=== PATIENT | female | born 1990 | race Caucasian/White ===

== ENCOUNTER 2018-09-18 18:14 | Inpatient (IN) | payer OTHER ==
[~2018-09-18] VITALS: Ht 160 cm; Wt 112.9 kg
[2018-09-18] MEDS ORDERED: OXYTOCIN/0.9 % SODIUM CHLORIDE 1,000 ML IV SCH (19:23)
[2018-09-18] MEDS ORDERED: LR 1,000 ML IV SCH (19:23)
[2018-09-18] MEDS ORDERED: TERBUTALINE SULFATE 1 MG/ML VIAL SUBCUT ONE (19:30)
[2018-09-18] MEDS ORDERED: NALBUPHINE HCL 10 MG/ML AMP IVP PRN (19:30)
[2018-09-18] MEDS ORDERED: DINOPROSTONE 10 MG SUPP VG ONE (19:30)
[2018-09-18 19:32] VITALS: BP_SYST 138
[2018-09-18 19:48] LABS: BASOPHILS % (AUTO) 0.4 % (0.0-2.0); EOSINOPHILS # (AUTO) 0.1 K/uL (0.0-0.4); EOSINOPHILS % (AUTO) 0.7 % (0.0-4.0); HEMATOCRIT 33.4 % (36-48); HEMOGLOBIN 11.1 g/dL (12.0-16.0); LYMPHOCYTES # (AUTO) 1.9 K/uL (1.0-5.5); LYMPHOCYTES % (AUTO) 18.6 % (20.5-51.5); MEAN CORPUSCULAR HEMOGLOBIN 29 pg (27-31); MEAN CORPUSCULAR HGB CONC 33 % (32-36); MEAN CORPUSCULAR VOLUME 86 fL (79.0-98.0); MONOCYTES # (AUTO) 0.7 K/uL (0.0-1.0); MONOCYTES % (AUTO) 6.5 % (1.7-9.3); NEUTROPHILS # (AUTO) 7.6 K/uL (1.8-7.7); NEUTROPHILS % (AUTO) 73.8 % (40.0-70.0); PLATELET COUNT (AUTO) 255 K/uL (130-430); RED BLOOD CELL COUNT(AUTO) 3.87 MIL/uL (4.2-6.2); RED CELL DISTRIBUTION WIDTH 15.6 % (9.0-15.0); WHITE BLOOD COUNT (AUTO) 10.3 K/uL (4.8-10.8)
[2018-09-18 19:49] LABS: BILIRUBIN,URINE NEGATIVE (NEGATIVE); BLOOD, URINE NEGATIVE (NEGATIVE); CLARITY/URINE CLEAR (CLEAR); COLOR,URINE YELLOW (YELLOW); GLUCOSE,URINE NEGATIVE (NEGATIVE); KETONES,URINE TRACE (NEGATIVE); LEUKOCYTE ESTERASE ,URINE TRACE (NEGATIVE); NITRITE, URINE NEGATIVE (NEGATIVE); PROTEIN URINE NEGATIVE (NEGATIVE); UROBILINOGEN,URINE 0.2 (0.2-1.0)
[2018-09-18 19:55] LABS: BACTERIA,URINE FEW /HPF (None Seen); RBC,URINE 0-3 /HPF (0-3)
[2018-09-18 20:14] LABS: CALCIUM 9.1 mg/dL (8.4-11.0); CREATININE 0.7 mg/dL (0.55-1.30); POTASSIUM 3.8 mmol/L (3.5-5.1); TOTAL BILIRUBIN 0.3 mg/dL (0.0-1.0)
[2018-09-18 20:15] LABS: ALBUMIN 2.4 g/dL (3.4-4.8)
[2018-09-19] MEDS ORDERED: DINOPROSTONE 10 MG SUPP VG ONE (10:39)
== END 2018-09-19 10:40 | disposition home or self-care (01) | DRG 833 ==
LOC: OBSVTOIN 18:16 → SPU 18:16
PROVIDERS: ADMIT Obstetrics & Gynecology; ATTEND Obstetrics & Gynecology
DX: O13.3 Gestational [pregnancy-induced] hypertension without significant proteinuria, third trimester (principal); Z3A.40 40 weeks gestation of pregnancy
CPT/HCPCS: 36415; 80053; 81000-TC; 85025; 85384-TC; 86592; 86870; 86886; 86900; 86901

== ENCOUNTER 2023-08-02 13:07 | Emergency (ER) | payer BC, OTHER ==
[~2023-08-02] VITALS: Ht 160 cm; Wt 95.3 kg
[2023-08-02 13:12] VITALS: BP_SYST 137; PULSE 84; RESP 15; TEMP 97.3; O2SAT 100
[2023-08-02] MEDS: RHO(D) IMMUNE GLOBULIN/MALTOSE 1500 UNITS/1.3 ML (WINHRO) INJ ONE (14:30)
[2023-08-02 14:36] LABS: CALCIUM 9.2 mg/dL (8.4-11.0); CREATININE 0.68 mg/dL (0.55-1.30)
[2023-08-02 14:37] LABS: BASOPHILS % (AUTO) 0.2 % (0.0-2.0); EOSINOPHILS # (AUTO) 0.2 K/uL (0.0-0.4); EOSINOPHILS % (AUTO) 1.8 % (0.0-4.0); HEMATOCRIT 37.2 % (36-48); HEMOGLOBIN 13.1 g/dL (12.0-16.0); MEAN CORPUSCULAR HEMOGLOBIN 31 pg (27-31); MEAN CORPUSCULAR HGB CONC 35 % (32-36); MEAN CORPUSCULAR VOLUME 87 fL (79.0-98.0); MONOCYTES # (AUTO) 0.5 K/uL (0.0-1.0); MONOCYTES % (AUTO) 5.9 % (1.7-9.3); NEUTROPHILS # (AUTO) 6.1 K/uL (1.8-7.7); NEUTROPHILS % (AUTO) 69.1 % (40.0-70.0); PLATELET COUNT (AUTO) 275 K/uL (130-430); RED BLOOD CELL COUNT(AUTO) 4.29 MIL/uL (4.2-6.2); RED CELL DISTRIBUTION WIDTH 13.1 % (9.0-15.0); WHITE BLOOD COUNT (AUTO) 8.9 K/uL (4.8-10.8)
[2023-08-02 16:20] VITALS: BP_SYST 131; PULSE 81; RESP 16; TEMP 97.8; O2SAT 98
== END 2023-08-02 16:17 | disposition home or self-care (01) ==
LOC: SED 13:07
DX: O20.0 Threatened abortion (principal); Z3A.01 Less than 8 weeks gestation of pregnancy; Z79.899 Other long term (current) drug therapy
CPT/HCPCS: 99285; 76856; 80048; 84702; 85025; 86886; 86900; 86901; 36415; 81025; 96372; J2792; J2790

== ENCOUNTER 2023-08-06 17:55 | Emergency (ER) | payer BC ==
[~2023-08-06] VITALS: Ht 160 cm; Wt 97.5 kg
[2023-08-06 18:10] VITALS: BP_SYST 113; PULSE 89; RESP 15; TEMP 97.6; O2SAT 99
[2023-08-06 18:53] LABS: EOSINOPHILS % (AUTO) 0.2 % (0.0-4.0); HEMATOCRIT 37.5 % (36-48); LYMPHOCYTES % (AUTO) 6.9 % (20.5-51.5); MEAN CORPUSCULAR HEMOGLOBIN 30 pg (27-31); MEAN CORPUSCULAR HGB CONC 35 % (32-36); MEAN CORPUSCULAR VOLUME 87 fL (79.0-98.0); MONOCYTES # (AUTO) 0.4 K/uL (0.0-1.0); MONOCYTES % (AUTO) 2.4 % (1.7-9.3); NEUTROPHILS # (AUTO) 13.4 K/uL (1.8-7.7); NEUTROPHILS % (AUTO) 90.5 % (40.0-70.0); PLATELET COUNT (AUTO) 252 K/uL (130-430); RED CELL DISTRIBUTION WIDTH 13.4 % (9.0-15.0); WHITE BLOOD COUNT (AUTO) 14.8 K/uL (4.8-10.8)
[2023-08-06 19:08] LABS: BILIRUBIN,URINE NEGATIVE (NEGATIVE); CLARITY/URINE CLEAR (CLEAR); COLOR,URINE YELLOW (YELLOW); GLUCOSE,URINE NEGATIVE (NEGATIVE); KETONES,URINE 3+ (NEGATIVE); LEUKOCYTE ESTERASE ,URINE TRACE (NEGATIVE); NITRITE, URINE NEGATIVE (NEGATIVE); PROTEIN URINE NEGATIVE (NEGATIVE); UROBILINOGEN,URINE 0.2 (0.2-1.0)
[2023-08-06] MEDS: NACL 0.9% 1,000 ML IV ONE (19:09)
[2023-08-06] MEDS: DIPHENHYDRAMINE INJ 50 MG/ML VIAL IVP ONE (19:19)
[2023-08-06] MEDS: FAMOTIDINE PF 20 MG/2 ML VIAL IVP ONE (19:20)
[2023-08-06] MEDS: METOCLOPRAMIDE HCL 10 MG/2 ML VIAL IVP ONE (19:21)
[2023-08-06 19:23] LABS: BLOOD, URINE TRACE (NEGATIVE)
[2023-08-06 19:50] LABS: CALCIUM 9.4 mg/dL (8.4-11.0); CREATININE 0.67 mg/dL (0.55-1.30); POTASSIUM 3.4 mmol/L (3.5-5.1)
[2023-08-06 20:06] LABS: ALBUMIN 3.5 g/dL (3.4-4.8); BILIRUBIN,DIRECT 0.1 mg/dL (0.0-0.3); TOTAL BILIRUBIN 0.2 mg/dL (0.0-1.0); TOTAL PROTEIN, SERUM 7.8 g/dL (6.4-8.3)
[2023-08-06 20:09] LABS: BACTERIA,URINE FEW /HPF (None Seen)
[2023-08-06] MEDS: POTASSIUM CHLORIDE 20 MEQ/PKT PACKET PO ONE (20:30)
[2023-08-06] MEDS: cephALEXin 500 MG CAPSULE PO ONE (20:30)
[2023-08-06] MEDS ORDERED: CEPH-548 PO (20:35)
[2023-08-06] MEDS ORDERED: DOXY1TAB PO (20:35)
[2023-08-06] MEDS ORDERED: SUCR1TAB2 PO (20:35)
[2023-08-06] MEDS ORDERED: FAMO20TA8 PO (20:35)
[2023-08-06 20:43] VITALS: BP_SYST 113; PULSE 89; RESP 15; TEMP 97.6; O2SAT 99
== END 2023-08-06 20:43 | disposition home or self-care (01) ==
LOC: SED 17:55
DX: O23.41 Unspecified infection of urinary tract in pregnancy, first trimester (principal); N39.0 Urinary tract infection, site not specified; O99.611 Diseases of the digestive system complicating pregnancy, first trimester; E87.6 Hypokalemia; Z3A.01 Less than 8 weeks gestation of pregnancy; Z79.899 Other long term (current) drug therapy
CPT/HCPCS: 99284; 96374; 96375; 96361; 80076; 80048; 81001; 82150; 84702; 83690; 85025; 36415; 81025; 81000; 81015; J1200; J3490; J2765; J7030